=== PATIENT | female | born 1960 | race Asian ===

== ENCOUNTER 2016-12-28 10:02 | Outpatient (CLI) | payer OTHER ==
[~2016-12-28 10:02] MED LIST: AMLO2.5T PO; ATEN50TA36 PO; ATENOLOL100 M1 PO; BUPROPN HCL300 MG PO; CADUET10 MG/10 M OR; CVS OMEPRAZOLE20 MG OR; FLEXERIL10 MG PO; FURO20TA67 PO; GLUCOPHAGE500 MG PO; GLUCOTROL5 MG PO; HYDR-2748 PO; HYDR12.54 PO; LANTUS100 MG/ML SC; LOTENSIN20 MG PO; NABUMETONE500 MG OR; NEURONTIN400 MG PO; NOVOLOG MIX 70/30 PR SC; PROAIR HFA IN; PROTONIX40 MG PO; TRAM50TA PO; ZANTAC150 MG PO
== END 2016-12-28 18:58 | disposition home or self-care (01) ==
LOC: RAD 10:02
DX: M54.17 Radiculopathy, lumbosacral region (principal)

== ENCOUNTER 2017-02-22 14:21 | Outpatient (CLI) | payer OTHER | END 2017-02-22 15:25 | disposition home or self-care (01) | LOC: MAMMO 14:21 | DX: Z12.31 Encounter for screening mammogram for malignant neoplasm of breast (principal) ==

== ENCOUNTER 2017-04-09 09:09 | Outpatient (CLI) | payer OTHER | END 2017-04-09 19:28 | disposition home or self-care (01) | LOC: RAD 09:09 | DX: M25.511 Pain in right shoulder (principal) ==

== ENCOUNTER 2017-05-17 14:10 | Outpatient (CLI) | payer OTHER | END 2017-05-17 20:09 | disposition home or self-care (01) | LOC: RAD 14:10 | DX: M25.511 Pain in right shoulder (principal) ==

== ENCOUNTER 2017-07-02 11:42 | Outpatient (CLI) | payer OTHER | END 2017-07-02 19:27 | disposition home or self-care (01) | LOC: MRI 11:42 | DX: M25.511 Pain in right shoulder (principal) ==

== ENCOUNTER 2017-10-16 12:10 | Emergency (ER) | payer OTHER ==
[~2017-10-16] VITALS: Ht 154.9 cm; Wt 105.2 kg
[2017-10-16 14:21] VITALS: BP 160/98; TEMP 98
== END 2017-10-16 14:37 | disposition home or self-care (01) ==
LOC: ED 12:10
DX: M54.5 Low back pain (principal); M47.896 Other spondylosis, lumbar region
CPT/HCPCS: 99282

== ENCOUNTER 2018-06-09 10:48 | Outpatient (CLI) | payer OTHER | END 2018-06-09 19:12 | disposition home or self-care (01) | LOC: MAMMO 10:48 → RAD 10:48 → MAMMO 19:12 | DX: M25.462 Effusion, left knee (principal); Z12.31 Encounter for screening mammogram for malignant neoplasm of breast ==

== ENCOUNTER 2018-07-25 06:16 | Outpatient (CLI) | payer OTHER | END 2018-07-25 06:19 | disposition short-term general hospital (02) | LOC: AMB 06:16 | DX: R06.02 Shortness of breath (principal); R06.09 Other forms of dyspnea | CPT/HCPCS: A0425; A0427 ==

== ENCOUNTER 2018-07-25 06:25 | Emergency (ER) | payer OTHER ==
[~2018-07-25] VITALS: Ht 154.9 cm; Wt 120.2 kg
[2018-07-25 07:00] LABS: PLATELET COUNT 224 K/uL (152-353)
[2018-07-25 07:12] LABS: POTASSIUM 4.4 mmol/L (3.6-5.2); SODIUM 139 mmol/L (136-145)
[2018-07-25 07:22] LABS: PARTIAL THROMBOPLASTIN TIME 27.1 SECONDS (24.5-33.6)
[2018-07-25 08:58] VITALS: BP 109/70; TEMP 97.9
== END 2018-07-25 09:00 | disposition short-term general hospital (02) ==
LOC: ED 06:25
PROVIDERS: Family Medicine
PROC: 0T9B70Z Drainage of Bladder with Drainage Device, Via Natural or Artificial Opening (ICD-10-PCS; principal; 2018-07-25)
DX: R06.03 Acute respiratory distress (principal); I46.9 Cardiac arrest, cause unspecified; R06.02 Shortness of breath
CPT/HCPCS: 31500; 36415; 36600; 43754; 51702; 80053; 81000; 82550; 82805; 83605; 83735; 83880; 84100; 84484; 85027; 85610; 85730; 87088; 92950; 93005; 96361; 96365; 96375; 96376; 99291; J0171; J0330; J1940; J2250; J3490